=== PATIENT | male | born 1995 | race Two or more races ===

== ENCOUNTER 2020-02-24 15:34 | Emergency (ER) | payer MEDICAID ==
[~2020-02-24] VITALS: Ht 175.3 cm; Wt 115.7 kg
[2020-02-24 15:50] VITALS: BP 141/96
--- NOTE | 2020-02-24 15:50 | NUR ---
ED Nurse Note: Pt ambulated to ED from home in for medication refill keppra 500mg twice/day and oxcarbazepine 600mg twice/day for his seizure. Pt's A&Ox4, VSS, on RA, afebrile on triage.
--- NOTE | 2020-02-24 16:03 | Emergency Room Report ---
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 Patient reports that he recently moved from [place] he has not established a primary doctor in [place]. Patient took the last Keppra and oxcarbazepine as a last night. Patient sitting comfortably see vital signs. Patient reports her last seizure activity was years ago. Denies any urinary bowel incontinence. Denies any headache and dizziness at this time. Denies fever and chills, chest pain, no other associated symptoms. Patient is neurovascularly intact. Allergies: Coded Allergies: No Known Allergies (Unverified , 02/24/20) COVID-19 Screening Contact w/high risk pt: No Experienced COVID-19 symptoms?: No COVID-19 Testing performed SOFTBALL WINDER: No Patient History Past Medical History: see triage record Past Surgical History: none Pertinent Family History: none Immunizations: UTD Reviewed Nursing Documentation: PMH: Agreed; PSxH: Agreed Nursing Documentation-PMH Past Medical History: No History, Except For Review of Systems All Other Systems: negative except mentioned in HPI Physical Exam Vital Signs Date Time Temp Pulse Resp B/P (MAP) Pulse Ox O2 Delivery O2 Flow Rate FiO2 02/24/20 15:40 98.2 71 16 141/96 (111) 99 Room Air Sp02 EP Interpretation: reviewed, normal General Appearance: well appearing, no apparent distress Head: normocephalic, atraumatic ENT: hearing grossly normal, normal voice Neck: full range of motion, supple Respiratory: no rhonchi, no respiratory distress, speaking full sentences Cardiovascular #1: normal inspection, normal peripheral pulses, regular rate, rhythm, no edema Gastrointestinal: non tender, soft Rectal: deferred Genitourinary: no CVA tenderness Musculoskeletal: gait/station normal Neurologic: alert, oriented, normal gait Psychiatric: judgement/insight normal, mood/affect normal Skin: no rash Lymphatic: no adenopathy Medical Decision Making PA Attestation All my diagnosis and treatment plans were reviewed ad discussed with my supervising physician Dr. 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 Patient reports that he recently moved from [place] he has not established a primary doctor in [place]. Patient took the last Keppra and oxcarbazepine as a last night. Patient sitting comfortably see vital signs. Patient reports her last seizure activity was years ago. Denies any urinary bowel incontinence. Denies any headache and dizziness at this time. Denies fever and chills, chest pain, no other associated symptoms. Patient is neurovascularly intact. Ddx considered but are not limited to: Tonic-clonic seizure, partial seizure, absence seizure Vital signs: are WNL, pt. is afebrile H&PE are most consistent with: Encounter for medication refill for partial seizure ORDERS: Keppra, oxcarbazepine ER intervention: None DISCHARGE: At this time pt. is stable for d/c to home. Will provide printed patient care instructions, and any necessary prescriptions. Care plan and follow up instructions have been discussed with the patient prior to discharge. Gave a list of clinics for patient to follow-up with establish primary doctor and I wrote for 30-day supply of both requested medication. If worsening symptoms return to the emergency room Last Vital Signs Date Time Temp Pulse Resp B/P (MAP) Pulse Ox O2 Delivery O2 Flow Rate FiO2 02/24/20 15:40 98.2 71 16 141/96 (111) 99 Room Air Disposition: HOME, SELF-CARE Condition: Stable Scripts Oxcarbazepine (OXCARBAZEPINE) 600 Mg Tablet 600 MG PO BID for 30 Days, #60 TAB Prov: Oz Delaney 02/24/20 Levetiracetam (KEPPRA) 500 Mg Tablet 500 MG ORAL EVERY 12 HOURS for 30 Days, #60 TAB 0 Refills Prov: Oz Delaney 02/24/20 Patient Instructions: Medicine Refill at the Emergency Department Oz Delaney Feb 24, 2020 16:03
[2020-02-24] MEDS ORDERED: OXCARBAZEPINE600 MG PO (16:05)
[2020-02-24] MEDS ORDERED: KEPPRA500 M4 ORAL (16:05)
[2020-02-24 16:09] VITALS: BP 122/82
--- NOTE | 2020-02-24 16:09 | NUR ---
ER DISCHARGE NOTE: Patient is cleared to be discharged per ERPA, pt is aox4, on room air, with stable vital signs. pt was given dc and prescription instructions, pt was able to verbalize understanding, pt id band removed. pt is able to ambulate with steady gait. pt took all belongings.
== END 2020-02-24 16:09 | disposition home or self-care (01) ==
LOC: EMR 16:02
DX: G40.909 Epilepsy, unspecified, not intractable, without status epilepticus (principal); Z76.0 Encounter for issue of repeat prescription
CPT/HCPCS: 99282